=== PATIENT | female | born 1945 | race Caucasian/White ===

== ENCOUNTER 2019-03-05 11:40 | Emergency (ER) | payer MEDICARE, MEDICAID ==
[~2019-03-05] VITALS: Ht 162.6 cm; Wt 70.9 kg
[2019-03-05 11:50] VITALS: Ht 162.6 cm; Wt 70.9 kg
[2019-03-05] MEDS ORDERED: VIMPAT50 MG PO (11:56)
[2019-03-05] MEDS ORDERED: FLUTICASONE PRO16 GM NASAL (11:57)
[2019-03-05] MEDS ORDERED: AUBAGIO14 MG PO (11:57)
[2019-03-05] MEDS ORDERED: MOBIC7.5 MG PO (11:57)
[2019-03-05] MEDS ORDERED: MACROBID100 MG PO (11:58)
[2019-03-05] MEDS ORDERED: KLOR-CON 1010 MEQ PO (11:58)
[2019-03-05] MEDS ORDERED: PROTONIX40 MG PO (11:59)
[2019-03-05] MEDS ORDERED: ZOLOFT50 MG PO (11:59)
[2019-03-05] MEDS ORDERED: SYNTHROID50 MCG PO (11:59)
[2019-03-05] MEDS ORDERED: HYDRALAZINE HCL25 MG PO (12:00)
[2019-03-05] MEDS ORDERED: CYMBALTA20 MG PO (12:00)
[2019-03-05] MEDS ORDERED: ZETIA10 MG PO (12:00)
[2019-03-05] MEDS ORDERED: MICARDIS40 MG PO (12:01)
[2019-03-05] MEDS ORDERED: NORVASC5 MG PO (12:01)
[2019-03-05 12:27] LABS: BASOPHILS 0.4 % (0-2); EOSINOPHILS 4.7 % (0-7); HEMATOCRIT 44.4 % (36.0-48.0); HEMOGLOBIN 14.6 g/dL (12-16); IMMATURE GRANULOCYTES 0.3 % (0-5); LYMPHOCYTES 6.4 % (15-50); MCH 28.5 pg (26.0-34.0); MCHC 32.9 g/dL (31.0-37.0); MCV 86.5 fL (80.0-100.0); MEAN PLATELET VOLUME 11.4 fL (7.4-10.4); MONOCYTES 8.1 % (2-11); NEUTROPHILS 80.1 % (40-80); PLATELET COUNT 199 10x3/uL (130-400); RBC 5.13 10x6/uL (4.00-5.40); RDW 14.5 % (11.5-14.5); WBC 13.4 10x3/uL (4.8-10.8)
[2019-03-05 12:33] LABS: ANION GAP 11.7 mmol/L (8-16); CALCIUM 9.2 mg/dL (8.5-10.1); CARBON DIOXIDE 28.9 mmol/L (21.0-32.0); CREATININE - SERUM 1.1 mg/dL (0.6-1.3); POTASSIUM - SERUM 3.6 mmol/L (3.5-5.1)
[2019-03-05 12:46] LABS: APPEARANCE CLEAR (CLEAR); BILIRUBIN NEGATIVE (NEGATIVE); BILIRUBIN - TOTAL 0.76 mg/dL (0.2-1.3); COLOR YELLOW (YELLOW); GLUCOSE NEGATIVE (NEGATIVE); KETONE NEGATIVE (NEGATIVE); NITRITE NEGATIVE (NEGATIVE); PROTEIN NEGATIVE (NEGATIVE); PROTEIN - SERUM 7.7 g/dL (6.4-8.2); UROBILINOGEN NORMAL (NORMAL)
[2019-03-05] MEDS ORDERED: OMNICEF300 MG PO (15:27)
[2019-03-05] MEDS ORDERED: PREDNISONE20 MG PO (15:27)
[2019-03-05] MEDS ORDERED: ALBUTEROL SULF8.5 GM INH (15:28)
[2019-03-05 16:15] VITALS: BP 138/81
== END 2019-03-05 16:18 | disposition home or self-care (01) ==
LOC: D.ER 11:40
PROVIDERS: Family Medicine
DX: J20.9 Acute bronchitis, unspecified (principal)

== ENCOUNTER 2020-02-18 12:34 | Emergency (ER) | payer MEDICARE, MEDICAID ==
[~2020-02-18] VITALS: Ht 162.6 cm; Wt 72.7 kg
[~2020-02-18 12:34] MED LIST: ALBUTEROL SULF8.5 GM INH; AUBAGIO14 MG PO; CYMBALTA20 MG PO; FLUTICASONE PRO16 GM NASAL; HYDRALAZINE HCL25 MG PO; KLOR-CON 1010 MEQ PO; MACROBID100 MG PO; MICARDIS40 MG PO; MOBIC7.5 MG PO; NORVASC5 MG PO; OMNICEF300 MG PO; PREDNISONE20 MG PO; PROTONIX40 MG PO; SYNTHROID50 MCG PO; VIMPAT50 MG PO; ZETIA10 MG PO; ZOLOFT50 MG PO
[2020-02-18 12:41] VITALS: Ht 162.6 cm; Wt 72.7 kg
[2020-02-18] MEDS ORDERED: VALIUM 2 MG TAB2 MG PO (12:56)
[2020-02-18] MEDS ORDERED: CRESTOR10 MG PO (12:56)
[2020-02-18 12:57] LABS: BILIRUBIN NEGATIVE (NEGATIVE); KETONE NEGATIVE (NEGATIVE); NITRITE NEGATIVE (NEGATIVE); UROBILINOGEN NORMAL mg/dL (< 2)
[2020-02-18] MEDS ORDERED: VITAMIN D1000 UNI1 PO (12:57)
[2020-02-18] MEDS ORDERED: FUROSEMIDE20 MG PO (12:57)
[2020-02-18 13:01] LABS: UDS - AMPHET NEGATIVE QUAL (NEGATIVE); UDS - BARB NEGATIVE QUAL (NEGATIVE); UDS - BENZO POSITIVE QUAL (NEGATIVE); UDS - COCAINE NEGATIVE QUAL (NEGATIVE); UDS - OPIATE NEGATIVE QUAL (NEGATIVE); UDS - PCP NEGATIVE QUAL (NEGATIVE); UDS - THC NEGATIVE QUAL (NEGATIVE)
[2020-02-18 13:06] LABS: BASOPHILS 0.7 % (0-2); EOSINOPHILS 4.4 % (0-7); HEMATOCRIT 44.9 % (36.0-48.0); HEMOGLOBIN 15.3 g/dL (12-16); IMMATURE GRANULOCYTES 0.3 % (0-5); LYMPHOCYTES 18.5 % (15-50); MCH 29.1 pg (26.0-34.0); MCHC 34.1 g/dL (31.0-37.0); MCV 85.5 fL (80.0-100.0); MEAN PLATELET VOLUME 10.6 fL (7.4-10.4); MONOCYTES 7.8 % (2-11); NEUTROPHILS 68.3 % (40-80); PLATELET COUNT 164 10x3/uL (130-400); RBC 5.25 10x6/uL (4.00-5.40); RDW 13.4 % (11.5-14.5); WBC 5.9 10x3/uL (4.8-10.8)
[2020-02-18 13:26] LABS: ANION GAP 9.9 mmol/L (8-16); CALCIUM 8.8 mg/dL (8.5-10.1); CARBON DIOXIDE 32.8 mmol/L (21.0-32.0); CREATININE - SERUM 1.1 mg/dL (0.6-1.3); POTASSIUM - SERUM 3.7 mmol/L (3.5-5.1)
[2020-02-18 13:31] LABS: ALBUMIN 4.2 g/dL (3.4-5.0); BILIRUBIN - TOTAL 0.34 mg/dL (0.2-1.3); MAGNESIUM - SERUM 1.8 mg/dL (1.8-2.4); PROTEIN - SERUM 7.5 g/dL (6.4-8.2)
[2020-02-18 15:13] VITALS: BP 126/78
== END 2020-02-18 15:13 | disposition home or self-care (01) ==
LOC: D.ER 12:34
PROVIDERS: Family Medicine
DX: G40.909 Epilepsy, unspecified, not intractable, without status epilepticus (principal); E07.9 Disorder of thyroid, unspecified; I10 Essential (primary) hypertension; K21.9 Gastro-esophageal reflux disease without esophagitis